=== PATIENT | male | born 1965 | race Caucasian/White ===

== ENCOUNTER 2024-05-15 09:19 | Emergency (ER) | payer OTHER ==
[~2024-05-15] VITALS: Ht 177.8 cm; Wt 106.6 kg
[2024-05-15 10:38] VITALS: TEMP 98.2
[2024-05-15] MEDS: metoPROLOL tartRATE 1 MG/ML 5ML VIAL IV ONE (10:38)
[2024-05-15 12:40] VITALS: BP 140/81; PULSE 88; RESP 16; O2SAT 98
== END 2024-05-15 12:44 | disposition home or self-care (01) ==
LOC: EDH 09:19
DX: I10 Essential (primary) hypertension (principal); E11.9 Type 2 diabetes mellitus without complications; E78.5 Hyperlipidemia, unspecified
CPT/HCPCS: 99285; 96374; 70450; 82948; J3490